=== PATIENT | male | born 1975 | race Caucasian/White ===

== ENCOUNTER → 2023-07-20 13:33 | Outpatient (REF) | payer OTHER, SELFPAY | LOC: MRI 3T 13:33 | PROVIDERS: ATTENDING PHYSICIAN Orthopaedic Surgery Hand Surgery | DX: S43.492A Other sprain of left shoulder joint, initial encounter (principal); M75.52 Bursitis of left shoulder; Y93.72 Activity, wrestling | CPT/HCPCS: 23350; 73040; 73222 ==